=== PATIENT | female | born 1955 | race Two or more races ===

== ENCOUNTER 2017-10-09 18:54 | Inpatient (IN) | payer SELFPAY ==
[~2017-10-09] VITALS: Ht 162.6 cm; Wt 105.5 kg
[2017-10-09] MEDS ORDERED: HYDROmorphone HCL 2 MG/ML VL ONE (19:36)
[2017-10-09] MEDS ORDERED: ONDANSETRON HCL 4 MG/2 ML VIAL ONE (19:36)
[2017-10-09 19:38] LABS: Basophils # (auto) 0.1 uL; Eosinophils # (auto) 0.1 uL; Eosinophils % (auto) 0.4 % (0.0-7.0); Monocytes # (auto) 0.5 uL; Monocytes % (auto) 2.9 % (0.0-12.0)
[2017-10-09 19:40] LABS: Basophils % (auto) 0.7 % (0.0-2.0); Hematocrit 36.3 % (36.0-46.0); Hemoglobin 11.5 g/dL (12.2-16.2); Lymphocytes # (auto) 1.6 uL; Lymphocytes % (auto) 9.3 % (10.0-50.0); Mean Corpuscular Hemoglobin 24.3 pg (28.0-32.0); Mean Corpuscular Hgb Conc. 31.8 g/dL (32.0-36.0); Mean Corpuscular Volume 76.3 fL (80.0-100.0); Mean Platelet Volume 7.5 fL (6.9-10.8); Neutrophils # (auto) 14.9 uL; Neutrophils % (auto) 86.7 % (37.0-80.0); Platelet Count (auto) 395 10^3/uL (140-450); White Blood Cell 17.2 10^3/uL (4.4-10.8)
[2017-10-09] MEDS ORDERED: ONDANSETRON HCL 4 MG/2 ML VIAL IV ONE ×2 (19:45→20:15)
[2017-10-09] MEDS ORDERED: HYDROmorphone HCL 2 MG/ML VL IV ONE ×2 (19:45→20:15)
[2017-10-09] MEDS ORDERED: KETOROLAC TROMETH 30 MG/ML 1ML VIAL IV ONE (19:45)
[2017-10-09 20:00] LABS: Albumin 3.6 g/dL (3.4-5.0); Alkaline Phosphatase 128 U/L (45-117); Anion Gap 8 (5-15); Aspartate Aminotransferase 100 U/L (15-37); BUN/Creatinine Ratio 22.5; Bilirubin, Total 0.6 mg/dL (0.2-1.0); Blood Urea Nitrogen 16 mg/dL (7-18); Calcium 8.5 mg/dL (8.5-10.1); Carbon Dioxide 23 mmol/L (21-32); Chloride 107 mmol/L (98-107); GFR African American 107 mL/min; GFR Non-African American 89 mL/min; Glucose 123 mg/dL (74-106); Potassium 3.8 mmol/L (3.5-5.1); Sodium 138 mmol/L (136-145); Total Protein 7.8 g/dL (6.4-8.2)
[2017-10-09] MEDS ORDERED: SODIUM CHLORIDE 0.9% 1,000 ML IV ONE (20:15)
[2017-10-10] VITALS (8 sets, daily range): BP systolic 87–121; BP diastolic 50–79
[2017-10-10 00:05] LABS: Amylase 461 U/L (25-115)
[2017-10-10] MEDS ORDERED: DOCUSATE SOD 100 MG CAP PO PRN (03:15)
[2017-10-10] MEDS ORDERED: TEMAZEPAM 15 MG CAP PO PRN (03:15)
[2017-10-10] MEDS ORDERED: ONDANSETRON HCL 4 MG/2 ML VIAL IV PRN (03:15)
[2017-10-10] MEDS ORDERED: SODIUM CHLORIDE 0.9% 500 ML IV ONE (03:15)
[2017-10-10] MEDS ORDERED: cefTRIAXone 1GM/50ML D5W 50 ML IV ONE (03:15)
[2017-10-10] MEDS ORDERED: HYDROmorphone HCL 2 MG/ML VL IV PRN (03:15)
[2017-10-10] MEDS ORDERED: HYDROcodone-ACET 5/325MG TAB PO PRN (03:15)
[2017-10-10] MEDS ORDERED: INFLUENZA QUAD 2017-2018 0.5 ML SYRG IM ONE (05:15)
[2017-10-10] MEDS: SODIUM CHLORIDE 0.9% 1,000 ML IV SCH ×2 (05:39→13:32)
[2017-10-10] MEDS: cefTRIAXone 1GM/50ML D5W 50 ML IV SCH (09:02)
[2017-10-10 09:06] LABS: BUN/Creatinine Ratio 17.9; Calcium 8.2 mg/dL (8.5-10.1); Potassium 4.4 mmol/L (3.5-5.1)
[2017-10-10] MEDS: ACETAMINOPHEN 325 MG TAB PO PRN ×2 (09:09→16:35)
[2017-10-10 10:34] LABS: Basophils # (auto) 0 uL; Basophils % (auto) 0.1 % (0.0-2.0); Eosinophils # (auto) 0 uL; Hemoglobin 10.7 g/dL (12.2-16.2); Monocytes # (auto) 0.7 uL; Monocytes % (auto) 3.4 % (0.0-12.0); Red Cell Distribution Width 17.9 % (11.8-14.3)
[2017-10-10 10:35] LABS: Hematocrit 34.5 % (36.0-46.0); Lymphocytes # (auto) 0.5 uL; Lymphocytes % (auto) 2.1 % (10.0-50.0); Mean Corpuscular Hgb Conc. 30.8 g/dL (32.0-36.0); Mean Corpuscular Volume 77.7 fL (80.0-100.0); Neutrophils # (auto) 20.6 uL; Neutrophils % (auto) 94.4 % (37.0-80.0); Platelet Count (auto) 362 10^3/uL (140-450); White Blood Cell 21.8 10^3/uL (4.4-10.8)
[2017-10-10 10:44] LABS: Amylase 264 U/L (25-115)
[2017-10-10] MEDS: ENOXAPARIN SOD 40 MG/0.4 ML SYRINGE SC SCH (11:02)
[2017-10-10] MEDS: PANTOPRAZOLE 40 MG/10 ML VIAL IV SCH (11:02)
[2017-10-10 11:12] LABS: Urine RBC None Seen /hpf (0 - 4)
[2017-10-10 11:21] LABS: Urine Bilirubin Negative (Negative); Urine Blood Negative /uL (Negative); Urine Color Brown (Yellow); Urine Glucose TRACE mg/dL (Normal); Urine Ketone Negative (Negative); Urine Nitrite Negative (Negative); Urine Squamous Epithelial Cell MOD /hpf (<5); Urine pH 5.5 (5.0-8.0)
[2017-10-11] MEDS: SODIUM CHLORIDE 0.9% 1,000 ML IV SCH ×3 (02:23→19:15)
[2017-10-11 05:38] VITALS: BP 115/64
[2017-10-11 06:15] LABS: Basophils # (auto) 0 uL; Basophils % (auto) 0.2 % (0.0-2.0); Eosinophils # (auto) 0.1 uL; Monocytes # (auto) 0.8 uL; Neutrophils # (auto) 6.9 uL
[2017-10-11 06:17] LABS: Eosinophils % (auto) 1.3 % (0.0-7.0); Hematocrit 31.2 % (36.0-46.0); Hemoglobin 9.8 g/dL (12.2-16.2); Lymphocytes # (auto) 0.7 uL; Lymphocytes % (auto) 8.2 % (10.0-50.0); Mean Corpuscular Hemoglobin 24.3 pg (28.0-32.0); Mean Corpuscular Hgb Conc. 31.4 g/dL (32.0-36.0); Mean Corpuscular Volume 77.4 fL (80.0-100.0); Mean Platelet Volume 7.8 fL (6.9-10.8); Neutrophils % (auto) 81.3 % (37.0-80.0); Platelet Count (auto) 258 10^3/uL (140-450); Red Cell Distribution Width 17.9 % (11.8-14.3); White Blood Cell 8.5 10^3/uL (4.4-10.8)
[2017-10-11 06:30] LABS: Albumin 2.8 g/dL (3.4-5.0); BUN/Creatinine Ratio 19.7; Bilirubin, Total 0.5 mg/dL (0.2-1.0); Calcium 8.2 mg/dL (8.5-10.1); Total Protein 6.7 g/dL (6.4-8.2)
[2017-10-11] MEDS: ACETAMINOPHEN 325 MG TAB PO PRN (06:46)
[2017-10-11 06:47] LABS: Amylase 119 U/L (25-115); Cholesterol 99 mg/dL (< 200); HDL Cholesterol 58 mg/dL (40-59); LDL Cholesterol 47 mg/dL (< 100); Triglycerides 58 mg/dL (< 150)
[2017-10-11 08:53] VITALS: BP 118/75
[2017-10-11] MEDS: PANTOPRAZOLE 40 MG/10 ML VIAL IV SCH (09:06)
[2017-10-11] MEDS: ENOXAPARIN SOD 40 MG/0.4 ML SYRINGE SC SCH (09:07)
[2017-10-11] MEDS: cefTRIAXone 1GM/50ML D5W 50 ML IV SCH (09:07)
[2017-10-11 12:11] VITALS: BP 133/73
[2017-10-11 16:39] VITALS: BP 134/72
[2017-10-11 22:00] VITALS: BP 116/70
[2017-10-12 05:00] VITALS: BP 117/76
[2017-10-12 09:00] VITALS: BP 119/79
[2017-10-12] MEDS: ENOXAPARIN SOD 40 MG/0.4 ML SYRINGE SC SCH (09:17)
[2017-10-12] MEDS: SODIUM CHLORIDE 0.9% 1,000 ML IV SCH (09:18)
[2017-10-12] MEDS ORDERED: PANTOPRAZOLE 40 MG TAB PO SCH (10:00)
[2017-10-12] MEDS ORDERED: PANT40T PO (12:31)
[2017-10-12] MEDS ORDERED: LEVO-28 PO (16:37)
== END 2017-10-12 13:37 | disposition home or self-care (01) | DRG 438 ==
LOC: ER 18:56 → OVERFLOW 18:57 → EAST 10-10 04:05
PROVIDERS: ADMIT Nurse Practitioner; ATTEND Internal Medicine
DX: K85.00 Idiopathic acute pancreatitis without necrosis or infection (principal); I21.9 Acute myocardial infarction, unspecified; K76.0 Fatty (change of) liver, not elsewhere classified; K80.20 Calculus of gallbladder without cholecystitis without obstruction; K43.9 Ventral hernia without obstruction or gangrene; E66.01 Morbid (severe) obesity due to excess calories; Z80.0 Family history of malignant neoplasm of digestive organs; Z83.3 Family history of diabetes mellitus; Z82.49 Family history of ischemic heart disease and other diseases of the circulatory system; Z98.84 Bariatric surgery status; Z90.710 Acquired absence of both cervix and uterus; Z90.49 Acquired absence of other specified parts of digestive tract; Z88.6 Allergy status to analgesic agent; Z68.39 Body mass index [BMI] 39.0-39.9, adult
CPT/HCPCS: 36415; 71020; 74176; 74181; 76705; 80048; 80053; 80061; 81001; 82150; 82962; 83690; 84484; 85025; 93005; 96361; 96365; 96375; 96376; C9113; J0696; J1885; J2405